=== PATIENT | female | born 1970 | race Caucasian/White ===

== ENCOUNTER 2019-11-07 13:33 | Inpatient (IN) | payer OTHER ==
[~2019-11-07] VITALS: Ht 177.8 cm; Wt 90.9 kg
[2019-11-07 14:50] LABS: BASOPHILS 0.3 % (0-2); EOSINOPHILS 1.7 % (0-7); HEMATOCRIT 44.1 % (36.0-48.0); HEMOGLOBIN 14.8 g/dL (12-16); IMMATURE GRANULOCYTES 0.3 % (0-5); LYMPHOCYTES 27.7 % (15-50); MCH 32.2 pg (26.0-34.0); MCHC 33.6 g/dL (31.0-37.0); MCV 96.1 fL (80.0-100.0); MEAN PLATELET VOLUME 9.6 fL (7.4-10.4); MONOCYTES 7.9 % (2-11); NEUTROPHILS 62.1 % (40-80); PLATELET COUNT 309 10x3/uL (130-400); RBC 4.59 10x6/uL (4.00-5.40); RDW 13.8 % (11.5-14.5); WBC 7.6 10x3/uL (4.8-10.8)
[2019-11-07 15:07] LABS: APTT 31.1 SECONDS (22.8-39.4); INR 0.99 (0.85-1.17)
[2019-11-07 15:09] LABS: D-DIMER-QUANTITATIVE 0.88 ug/mLFEU (0.20-0.54)
[2019-11-07 15:20] LABS: ALBUMIN 3.1 g/dL (3.4-5.0); ALKALINE PHOSPHATASE 130 U/L (30-120); ALT (SGPT) 29 U/L (10-68); BILIRUBIN - TOTAL 0.43 mg/dL (0.2-1.3); CALC OSMOLALITY 279 mosm/kg (275-300); CALCIUM 8.4 mg/dL (8.5-10.1); CARBON DIOXIDE 32.1 mmol/L (21.0-32.0); CHLORIDE - SERUM 104 mmol/L (98-107); CKMB 0.6 U/L (0.0-3.6); CREATINE KINASE 103 UL (21-215); CREATININE - SERUM 0.7 mg/dL (0.6-1.3); GLUCOSE 107 mg/dL (74-106); MAGNESIUM - SERUM 1.9 mg/dL (1.8-2.4); PROTEIN - SERUM 6.6 g/dL (6.4-8.2); SODIUM 141 mmol/L (136-145); UREA NITROGEN 11 mg/dL (7-18); eGFR NON AFRICAN AMERICAN > 90 mL/min (90-120)
[2019-11-07 15:26] LABS: TROPONIN-I < 0.017 ng/mL (0.000-0.060)
[2019-11-07 15:30] LABS: POTASSIUM - SERUM 2.9 mmol/L (3.5-5.1)
--- NOTE | 2019-11-07 17:26 | NUR ---
PROVIDED PATIENT WITH SNACK TRAY
--- NOTE | 2019-11-07 17:28 | NUR ---
ATTEMPTED REPORT VIA PHONE, UNSUCESSFUL
--- NOTE | 2019-11-07 17:50 | NUR ---
TRIED CALLING ER FOR REPORT. PUT ON HOLD.
--- NOTE | 2019-11-07 17:51 | NUR ---
2ND ATTEMPT TO CALL REPORT, UNSUCESSFUL
[2019-11-07 17:55] VITALS: BP 155/88
[2019-11-07 18:33] VITALS: BP 151/78; BMI 28.7
[2019-11-07 20:43] VITALS: BP 167/85
[2019-11-07 21:14] LABS: CKMB 0.4 U/L (0.0-3.6); CREATINE KINASE 91 UL (21-215)
[2019-11-07 21:15] LABS: TROPONIN-I < 0.017 ng/mL (0.000-0.060)
--- NOTE | 2019-11-07 21:43 | NUR ---
PT C/O IV TO LEFT AC HURTS, PT ASKING FOR IV TO BE REMOVED AND PLACED ELSEWHERE. IV RESITED TO RIGHT HAND, 22 GUAGE. IV TO LEFT AC REMOVED, TIP INTACT.
--- NOTE | 2019-11-08 00:53 | NUR ---
RESTING WITH EYES CLOSED, RESPERATIONS EVEN, NO S/S DISTRESS NOTED.
[2019-11-08 03:27] LABS: CKMB 0.2 U/L (0.0-3.6); CREATINE KINASE 75 UL (21-215); TROPONIN-I < 0.017 ng/mL (0.000-0.060)
--- NOTE | 2019-11-08 08:34 | NUR ---
ADMINISTERED ASPIRIN AT THIS TIME. NO DIFFICULTY SWALLOWING. RESTING COMFORTABLY UP RIGHT IN BED. DENIES ANY NEEDS AT THIS TIME.
[2019-11-08 09:42] VITALS: BP 157/79
[2019-11-08 10:11] LABS: CKMB 0.2 U/L (0.0-3.6); CREATINE KINASE 73 UL (21-215); TROPONIN-I < 0.017 ng/mL (0.000-0.060)
--- NOTE | 2019-11-08 12:26 | NUR ---
PT FINALLY SPOKE WITH NUCLEAR MEDICINCE CONCERNING TIME OF STRESS TEST. IT WILL BE TODAY 11/07 AT 1 PM. PT IS RESTING IN BED COMFORTABLY. DENIES ANY NEEDS AT THIS TIME. WILL CONTINUE TO MONITOR.
[2019-11-08 14:38] VITALS: Ht 177.8 cm; Wt 90.9 kg
--- NOTE | 2019-11-08 15:00 | NUR ---
OUT OF ROOM TO FINISH STRESS TEST.
--- NOTE | 2019-11-08 15:14 | NUR ---
PT IS BACK FROM STRESS TEST.
--- NOTE | 2019-11-08 16:14 | NUR ---
PT RESTING UPRIGHT IN BED. NO S/S OF DISTRESS NOTED AT THIS TIME. BED IN LOWEST POSITION, BED RAILS X2, CALL LIGHT WITHIN REACH. DENIES ANY NEEDS AT THIS TIME. WILL CONTINUE TO MONITOR.
[2019-11-08 17:39] VITALS: BP 157/90
--- NOTE | 2019-11-08 19:39 | NUR ---
RECEIVED BEDSIDE REPORT. PATIENT IS ALERT AND ORIENTED, RESTING COMFORTABLY IN BED. RESPIRATIONS ARE EVEN AND UNLABORED. NO S/S OF DISTRESS. NO C/O PAIN. CALL LIGHT WITHIN REACH. WILL CPOC.
[2019-11-08 20:00] VITALS: BP 173/108
[2019-11-09] VITALS: BP 181/92
--- NOTE | 2019-11-09 03:39 | NUR ---
UA OBTAINED AND TAKEN TO LAB
[2019-11-09 04:00] VITALS: BP 183/100
[2019-11-09 04:01] LABS: UDS - AMPHET NEGATIVE QUAL (NEGATIVE); UDS - BARB NEGATIVE QUAL (NEGATIVE); UDS - BENZO NEGATIVE QUAL (NEGATIVE); UDS - COCAINE NEGATIVE QUAL (NEGATIVE); UDS - OPIATE NEGATIVE QUAL (NEGATIVE); UDS - PCP NEGATIVE QUAL (NEGATIVE); UDS - THC NEGATIVE QUAL (NEGATIVE)
[2019-11-09 04:07] LABS: BILIRUBIN NEGATIVE (NEGATIVE); GLUCOSE NEGATIVE (NEGATIVE); KETONE NEGATIVE (NEGATIVE); NITRITE NEGATIVE (NEGATIVE); SPECIFIC GRAVITY 1.005 (1.005-1.020); UROBILINOGEN NORMAL (NORMAL)
[2019-11-09 04:08] LABS: BACTERIA MODERATE /hpf (NEGATIVE); EPITHELIAL CELLS NSEEN /hpf (0-5); RED CELLS - URINE 0-5 /hpf (0-5); WHITE CELLS - URINE NSEEN /hpf (NEGATIVE)
[2019-11-09 06:35] LABS: BASOPHILS 0.2 % (0-2); EOSINOPHILS 1.9 % (0-7); HEMATOCRIT 43.9 % (36.0-48.0); HEMOGLOBIN 14.4 g/dL (12-16); IMMATURE GRANULOCYTES 0.1 % (0-5); LYMPHOCYTES 26.3 % (15-50); MCH 31.6 pg (26.0-34.0); MCHC 32.8 g/dL (31.0-37.0); MCV 96.3 fL (80.0-100.0); MEAN PLATELET VOLUME 10.1 fL (7.4-10.4); NEUTROPHILS 65.5 % (40-80); PLATELET COUNT 327 10x3/uL (130-400); RBC 4.56 10x6/uL (4.00-5.40); RDW 13.7 % (11.5-14.5)
[2019-11-09 06:38] LABS: CALC OSMOLALITY 279 mosm/kg (275-300); CALCIUM 7.9 mg/dL (8.5-10.1); CARBON DIOXIDE 29.1 mmol/L (21.0-32.0); CHLORIDE - SERUM 105 mmol/L (98-107); CREATININE - SERUM 0.6 mg/dL (0.6-1.3); GLUCOSE 105 mg/dL (74-106); SODIUM 141 mmol/L (136-145); UREA NITROGEN 10 mg/dL (7-18); eGFR NON AFRICAN AMERICAN > 90 mL/min (90-120)
--- NOTE | 2019-11-09 07:10 | NUR ---
PT LYING IN BED. RESTING QUIETLY. ON ROOM AIR. PT STATES SHE HAS NO FURTHER NEEDS AT THIS TIME. BED LOW. CL IN REACH.
[2019-11-09 07:20] LABS: POTASSIUM - SERUM 2.8 mmol/L (3.5-5.1)
[2019-11-09 08:11] VITALS: BP 133/67
--- NOTE | 2019-11-09 18:34 | NUR ---
PT TO DC IF POTASSIUM LEVEL IS 3.1 OR HIGHER. POTASSIUM DRAW SCHEDULED FOR 1839.
--- NOTE | 2019-11-09 19:00 | NUR ---
RECEIVED BEDSIDE REPORT. PATIENT IS ALERT AND ORIENTED, RESTING COMFORTABLY IN BED. RESPIRATIONS ARE EVEN AND UNLABORED. NO S/S OF DISTRESS. NO C/O PAIN. AWAITING RESULT FROM LAB TO CONTINUE WITH DISCHARGE.
--- NOTE | 2019-11-10 08:10 | MORECARE ---
CASE MANAGEMENT DISCHARGE SUMMARY PATIENT: KIMBERLEY HEATON UNIT: [id number] ADM DATE: 11/09/19 AGE: 49 : 66 SEX: F ROOM/BED: D.2113 AUTHOR: TIMOTEO PRIDE PHYSICIAN: REFERRING PHYSICIAN: DALJIT HEATON MD DATE OF SERVICE: 11/10/19 Discharge Plan Patient Name: KIMBERLEY HEATON Facility: [facility]:Carlotta : 1970 Planned Disposition: Anticipated Discharge Date: Discharge Date: 11/09/2019 Expected LOS: Initial Reviewer: [email or web address] Initial Review Date: 11/07/2019 Generated: 11/10/19 9:10 am Comments DCP- Discharge Planning Updated by [email or web address]: Sandra Huitron on 11/10/19 7:[address] Patient Name: KIMBERLEY HEATON Admission Status: ER Accout number: [id number] Admission Date: 11-09-2019 : 1970 Admission Diagnosis: Attending: DALJIT HEATON Current LOS: 1 Anticipated DC Date: Planned Disposition: Primary Insurance: [facility] PPO Discharge Planning Comments: PT PLANNED DC TODAY. STATED SHE WILL RETURN HOME AND DENIES NEEDS. Steward/Stewardess Third: Sandra Huitron Patient Name: KIMBERLEY HEATON Page [phone] at 0810 All edits/amendments must be made on the electronic document DICTATION DATE: 11/10/19809 FILING MACHINE OPERATOR: JIMBO 11/10/19809 RPT#: [id number] DC DATE:11/09/19 STATUS: DIS IN [facility] [address] [facility] [place] [address] END OF REPORT
== END 2019-11-09 21:06 | disposition home or self-care (01) | DRG 311 ==
LOC: D.ER 13:33 → D.M2 16:14 → OBSVTIME 17:04 → D.M2 11-09 08:38
PROVIDERS: Family Medicine; ADMIT Internal Medicine Nephrology; ATTEND Internal Medicine Nephrology
DX: I20.9 Angina pectoris, unspecified (principal); F17.203 Nicotine dependence unspecified, with withdrawal; R00.2 Palpitations; E87.6 Hypokalemia; I10 Essential (primary) hypertension

== ENCOUNTER 2021-01-05 12:58 | Emergency (ER) | payer OTHER ==
[~2021-01-05] VITALS: Ht 177.8 cm; Wt 86.4 kg
[2021-01-05 13:02] VITALS: Ht 177.8 cm; Wt 86.4 kg
[2021-01-05] MEDS ORDERED: KLOR-CON M2020 MEQ PO (13:07)
[2021-01-05 13:14] LABS: BASOPHILS 0.7 % (0-2); EOSINOPHILS 0.9 % (0-7); HEMATOCRIT 50.3 % (36.0-48.0); HEMOGLOBIN 17.2 g/dL (12-16); LYMPHOCYTES 20.4 % (15-50); MCHC 34.1 g/dL (31.0-37.0); MCV 93.9 fL (80.0-100.0); MONOCYTES 5.4 % (2-11); NEUTROPHILS 72.6 % (40-80); PLATELET COUNT 367 10x3/uL (130-400); RBC 5.36 10x6/uL (4.00-5.40); RDW 14.7 % (11.5-14.5); WBC 10.6 10x3/uL (4.8-10.8)
[2021-01-05 13:28] LABS: ALBUMIN 3.5 g/dL (3.4-5.0); ALKALINE PHOSPHATASE 115 U/L (30-120); ALT (SGPT) 27 U/L (10-68); BILIRUBIN - TOTAL 0.37 mg/dL (0.2-1.3); CALC OSMOLALITY 287 mosm/kg (275-300); CALCIUM 8.8 mg/dL (8.5-10.1); CARBON DIOXIDE 34.9 mmol/L (21.0-32.0); CHLORIDE - SERUM 104 mmol/L (98-107); CREATININE - SERUM 0.8 mg/dL (0.6-1.3); GLUCOSE 114 mg/dL (74-106); PROTEIN - SERUM 7.5 g/dL (6.4-8.2); SODIUM 145 mmol/L (136-145); UREA NITROGEN 8 mg/dL (7-18); eGFR NON AFRICAN AMERICAN 80 mL/min (90-120)
[2021-01-05 13:32] LABS: POTASSIUM - SERUM 2.5 mmol/L (3.5-5.1)
[2021-01-05] MEDS ORDERED: EFFER-K 25 MEQ25 MEQ PO (13:55)
[2021-01-05 14:17] VITALS: BP 138/70
== END 2021-01-05 14:18 | disposition home or self-care (01) ==
LOC: D.ER 12:58
PROVIDERS: Family Medicine
DX: E87.6 Hypokalemia (principal); R53.81 Other malaise